=== PATIENT | female | born 1995 | race Caucasian/White ===

== ENCOUNTER 2018-09-02 10:20 | Emergency (ER) | payer OTHER ==
[2018-09-02 10:35] VITALS: BP 103/66
--- NOTE | 2018-09-02 11:08 | ED ---
Throat Pain/Nasal Congestion - HPI Summary HPI Summary: Patient is a 23 y/o F w/ c/o metal ball earring stuck in her right ear close to her ear drum. Ball fell into her ear last night, patient went to urgent care. She was told that the ball was too close to her ear drum to be pulled out and she should follow up with ENT. Patient states that her ear pain was which lead her to come into ED today. No Hx of ear infections, no other complaints. On triage, pain is rated 5/10, nothing is reported to aggravate/alleviate Sx. Home medications and allergies are reviewed. - History of Current Complaint Chief Complaint: EDEarPain Time Seen by Provider: 09/02/18 10:51 Hx Obtained From: Patient Onset/Duration: Lasting Days - onset last night, Still Present Severity: Moderate - 5/10 Associated Signs And Symptoms: Positive: Negative Cough: None - Allergies/Home Medications Allergies/Adverse Reactions: Allergies Allergy/AdvReac Type Severity Reaction Status Date / Time amoxicillin Allergy Severe Rash Verified 09/02/18 10:35 Penicillins Allergy Severe Rash Verified 09/02/18 10:35 Home Medications: Home Medications Norethindrone-E.estradiol-Iron [Junel Fe 24 1-20 mg-Mcg(24)] 1 tab PO DAILY [History Confirmed 09/02/18] PMH/Surg Hx/FS Hx/Imm Hx Sensory History: Denies: Hx Legally Blind, Hx Deafness Opthamlomology History: Denies: Hx Legally Blind EENT History: Denies: Hx Deafness Infectious Disease History: No Infectious Disease History: Denies: Traveled Outside the [place] in Last 30 Days - Family History Known Family History: Negative: Diabetes - Social History Alcohol Use: Occasionally Substance Use Type: Reports: None Smoking Status (MU): Never Smoked Tobacco Review of Systems Negative: Fever - on vitals, temp is 97.4 F Positive: Other - metal ball in right ear All Other Systems Reviewed And Are Negative: Yes Physical Exam - Summary Physical Exam Summary: Appearance: Well appearing, no pain distress Skin: warm, dry, reflects adequate perfusion Head/face: normal Eyes: EOMI, VITOR ENT: metal ball in right ear, no other abnormal findings Neck: supple, non-tender Respiratory: CTA, breath sounds present Cardiovascular: RRR, pulses symmetrical Abdomen: non-tender, soft Bowel: present Musculoskeletal: normal, strength/ROM intact Neuro: normal, sensory motor intact, A&Ox3 Triage Information Reviewed: Yes Vital Signs On Initial Exam: Initial Vitals Temp Pulse Resp BP Pulse Ox 97.4 F 66 14 103/66 98 09/02/18 10:31 09/02/18 10:31 09/02/18 10:31 09/02/18 10:31 09/02/18 10:31 Vital Signs Reviewed: Yes Diagnostics - Vital Signs Vital Signs Temp Pulse Resp BP Pulse Ox 09/02/18 10:31 97.4 F 66 14 103/66 98 - Laboratory Lab Statement: Any lab studies that have been ordered have been reviewed, and results considered in the medical decision making process. EENT Course/Dx - Course Course Of Treatment: Patient is a 23 y/o F w/ c/o metal ball earring stuck in her right ear close to her ear drum. Ball fell into her ear last night, patient went to urgent care. She was told that the ball was too close to her ear drum to be pulled out and she should follow up with ENT. Patient states that her ear pain was which lead her to come into ED today. No Hx of ear infections, no other complaints. On physical exam, patient is noted to have a metal ball in right ear with no other abnormal findings. Right ear was flushed with saline, metal ball came out of ear with no complications. Patient is agreeable with discharge, Dx of foreign body in right ear. - Diagnoses Provider Diagnoses: Foreign body in right ear Discharge - Sign-Out/Discharge Documenting (check all that apply): Patient Departure - discharge - Discharge Plan Condition: Stable Disposition: HOME Patient Education Materials: Ear Foreign Body (ED) Referrals: [facility] [Outside] - 3 Days Additional Instructions: FOLLOW UP WITH YOUR PRIMARY CARE PHYSICIAN IN THREE DAYS. RETURN TO ED FOR ANY NEW OR WORSENING SYMPTOMS. - Billing Disposition and Condition Condition: STABLE Disposition: Home - Attestation Statements Document Initiated by Scribe: Yes Documenting Scribe: Bennie Keita Provider For Whom Scribe is Documenting (Include Credential): Eric Wilson MD Scribe Attestation: Bennie Seaman , scribed for Eric Wilson MD on 09/02/18 at 1153. Scribe Documentation Reviewed: Yes Provider Attestation: The documentation as recorded by the Bennie hoyt accurately reflects the service I personally performed and the decisions made by me, Eric Wilson MD
== END 2018-09-02 11:11 | disposition home or self-care (01) ==
LOC: ED 10:20
DX: T16.1XXA Foreign body in right ear, initial encounter (principal); X58.XXXA Exposure to other specified factors, initial encounter; Y92.9 Unspecified place or not applicable
CPT/HCPCS: 99281

== ENCOUNTER → 2018-09-16 13:19 | Emergency (ER) | payer OTHER ==
[~2018-09-16 13:19] MED LIST: Ondansetron ODT TAB* 4 MG PO ONE
--- NOTE | 2018-09-16 13:37 | ED ---
Substance Abuse/Use - HPI Summary HPI Summary: This patient is a 23 year old F presenting to [facility] with a chief complaint of emesis since [employer]. Pt unresponsive, has been vomiting secondary to EtOH abuse since at least 1300 upon EMS arrival. Pt has vomit on her shirt and hair. Level 5 caveat: Full HPI unobtainable due to pts AMS secondary to EtOH. - History Of Current Complaint Stated Complaint: ETOH Time Seen by Provider: 09/16/18 13:22 Hx Obtained From: EMS Hx From Patient Unobtainable Due To: Altered Mental Status Ingestion History: Type/Name Of Drug - EtOh, Amount Ingested - unk, Approximate Time Of Ingestion - unk Overdose Characteristics: Oral Severity Currently: Moderate Character: Lethargic, Stuporous Associated Signs And Symptoms: Nausea, Vomiting, Altered Mental Status - Allergies/Home Medications Allergies/Adverse Reactions: Allergies Allergy/AdvReac Type Severity Reaction Status Date / Time amoxicillin Allergy Severe Rash Verified 09/02/18 10:35 Penicillins Allergy Severe Rash Verified 09/02/18 10:35 PMH/Surg Hx/FS Hx/Imm Hx Sensory History: Denies: Hx Legally Blind, Hx Deafness Opthamlomology History: Denies: Hx Legally Blind EENT History: Denies: Hx Deafness - Family History Known Family History: Negative: Diabetes - Social History Occupation: Student Lives: Dormitory/Roommates Alcohol Use: Occasionally Hx Substance Use: No Substance Use Type: Reports: None Hx Tobacco Use: No Smoking Status (MU): Never Smoked Tobacco - Additional Comments History Additional Comments: Level 5 caveat: full Hx unobtainable due to pt's AMS secondary to EtOH abuse. Review of Systems - ROS Summary Review of Systems Summary: Level 5 caveat: Full ROS unobtainable due to pt AMS secondary to EtOH abuse. Positive: Other - unresponsive/minimally responsive Positive: Vomiting, Nausea Positive: no symptoms reported Neurological: Other - unresponsive/minimally responsive All Other Systems Reviewed And Are Negative: No Physical Exam - Summary Physical Exam Summary: Appearance: The patient is minimally responsive, covered in vomit, well- nourished in no acute distress and in no acute pain. Skin: The skin is warm and dry and skin color reflects adequate perfusion. HEENT: The head is normocephalic and atraumatic. The pupils are equal and reactive. The conjunctivae are clear and without drainage. Nares are patent and without drainage. Mouth reveals moist mucous membranes and the throat is without erythema and exudate. The external ears are intact. The ear canals are patent and without drainage. The tympanic membranes are intact. Neck: The neck is supple with full range of motion and non-tender. There are no carotid bruits. There is no neck vein distension. Respiratory: Chest is non-tender. Lungs are clear to auscultation and breath sounds are symmetrical and equal. Cardiovascular: Heart is regular rate and rhythm. There is no murmur or rub auscultated. There is no peripheral edema and pulses are symmetrical and equal. Abdomen: The abdomen is soft and non-tender. There are normal bowel sounds heard in all four quadrants and there is no organomegaly palpated. Musculoskeletal: There is no back tenderness noted. Extremities are non-tender with full range of motion. There is good capillary refill. There is no peripheral edema or calf tenderness elicited. Neurological: Patient is minimally responsive. The patient has symmetrical motor strength in all four extremities. Cranial nerves are grossly intact. Deep tendon reflexes are symmetrical and equal in all four extremities. GCS 9 Psychiatric: The patient has an appropriate affect and does not exhibit any anxiety or depression. Triage Information Reviewed: Yes Vital Signs Reviewed: Yes Completion Of Physical Exam Limited Due To: Altered Mental Status, Level 5 - Connie Coma Scale Best Eye Response: 4 - Spontaneous Best Motor Response: 4 - Withdraws - from pain Best Verbal Response: 1 - None Coma Scale Total: 9 Course/Dx - Course Course Of Treatment: Ms. Aden presented vomiting secondary to alcohol intoxication. She was given ODT Zofran and allowed to rest. When she first arrived she was poorly responsive but was able to cooperate some. After sleeping for several hours she was cooperative and clinically sober and discharged in stable condition. - Diagnoses Provider Diagnoses: Alcohol intoxication Discharge - Sign-Out/Discharge Documenting (check all that apply): Patient Departure - discharge - Discharge Plan Condition: Stable Disposition: HOME Patient Education Materials: Alcohol Intoxication (ED) Referrals: [facility] @ [Outside] Additional Instructions: Follow up at [facility] in 2-3 days. Return to the emergency department for any new or worsening symptoms. - Billing Disposition and Condition Condition: STABLE Disposition: Home - Attestation Statements Document Initiated by Scribe: Yes Documenting Scribe: Ash Mao Provider For Whom Scribe is Documenting (Include Credential): Dr. Jonas Barrios MD Scribe Attestation: I, Ash Mao, scribed for Dr. Jonas Barrios MD on 09/17/18 at 1509. Scribe Documentation Reviewed: Yes Provider Attestation: The documentation as recorded by the scribe, Ash Mao accurately reflects the service I personally performed and the decisions made by me, Dr. Jonas Barrios MD
[2018-09-16 20:31] VITALS: BP 117/75
== END | disposition home or self-care (01) ==
LOC: ED 13:19
DX: Z88.0 Allergy status to penicillin (principal); F10.120 Alcohol abuse with intoxication, uncomplicated
CPT/HCPCS: 99283

== ENCOUNTER → 2019-02-20 21:39 | Emergency (ER) | payer OTHER ==
[~2019-02-20 21:39] MED LIST changes: +Levofloxacin TAB* 500 MG PO ONE; -Ondansetron ODT TAB* 4 MG PO ONE
--- NOTE | 2019-02-20 22:43 | ED ---
Throat Pain/Nasal Congestion - HPI Summary HPI Summary: Patient complains of sudden onset left side neck pain tonight at 8 PM, also complains of headache starting this morning, which resolved with Excedrin. Recently completed course of doxycycline for diagnosis of sinusitis. States sinusitis symptoms did not improve. History of recurrent sinusitis. Patient states she has never had neck pain with sinusitis infections before. Denies fever, cough, sore throat, SOB, CP, N/V/D, abdominal pain, change in urine, change in BM. - History of Current Complaint Chief Complaint: EDGeneral Time Seen by Provider: 02/20/19 22:08 Hx Obtained From: Patient Onset/Duration: Sudden Onset, Lasting Hours Severity: Moderate Associated Signs And Symptoms: Positive: Negative Cough: None - Allergies/Home Medications Allergies/Adverse Reactions: Allergies Allergy/AdvReac Type Severity Reaction Status Date / Time amoxicillin Allergy Severe Rash Verified 02/20/19 22:00 Penicillins Allergy Severe Rash Verified 02/20/19 22:00 PMH/Surg Hx/FS Hx/Imm Hx Endocrine/Hematology History: Denies: Hx Diabetes Cardiovascular History: Denies: Hx Pacemaker/ICD History: Denies: Hx Dialysis Sensory History: Denies: Hx Legally Blind, Hx Deafness Opthamlomology History: Denies: Hx Legally Blind EENT History: Denies: Hx Deafness Neurological History: Denies: Hx Dementia Psychiatric History: Denies: Hx Autism Infectious Disease History: No Infectious Disease History: Denies: Traveled Outside the [place] in Last 30 Days - Family History Known Family History: Negative: Diabetes - Social History Alcohol Use: Weekly Alcohol Amount: unk Hx Substance Use: No Substance Use Type: Reports: None Substance Use Comment - Amount & Last Used: unk Hx Tobacco Use: No Smoking Status (MU): Never Smoked Tobacco Review of Systems Constitutional: Negative Eyes: Negative ENT: Negative, Other Cardiovascular: Negative Respiratory: Negative Gastrointestinal: Negative Genitourinary: Negative Musculoskeletal: Negative Skin: Negative Neurological: Negative Psychological: Normal All Other Systems Reviewed And Are Negative: Yes Physical Exam - Summary Physical Exam Summary: No evidence of abscess, mass, erythema, ecchymosis, trauma to left side neck.. ENT exam unremarkable. Lung sounds clear to auscultation bilaterally. Abdomen soft nontender. Tenderness to palpation along left sternocleidomastoid. Rotation of head to the left increases left-sided neck pain. No pain with rotation to the right. Triage Information Reviewed: Yes Vital Signs On Initial Exam: Initial Vitals Temp Pulse Resp BP Pulse Ox 98.5 F 71 16 109/83 99 02/20/19 21:55 02/20/19 21:55 02/20/19 21:55 02/20/19 21:55 02/20/19 21:55 Vital Signs Reviewed: Yes Appearance: Positive: Well-Appearing Skin: Positive: Warm Head/Face: Positive: Normal Head/Face Inspection Eyes: Positive: Normal ENT: Positive: Normal ENT inspection Neck: Positive: Supple Respiratory/Lung Sounds: Positive: Clear to Auscultation Cardiovascular: Positive: Normal Abdomen Description: Positive: Nontender Musculoskeletal: Positive: Normal Neurological: Positive: Normal Psychiatric: Positive: Normal AVPU Assessment: Alert - Connie Coma Scale Best Eye Response: 4 - Spontaneous Best Motor Response: 6 - Obeys Commands Best Verbal Response: 5 - Oriented Coma Scale Total: 15 Diagnostics - Vital Signs Vital Signs Temp Pulse Resp BP Pulse Ox 02/20/19 22:21 99.6 F 02/20/19 22:15 96 100 02/20/19 22:14 90 129/72 99 02/20/19 21:55 98.5 F 71 16 109/83 99 - Laboratory Lab Statement: Any lab studies that have been ordered have been reviewed, and results considered in the medical decision making process. EENT Course/Dx - Course Course Of Treatment: Patient complains of sudden onset left side neck pain tonight at 8 PM, also complains of headache starting this morning, which resolved with Excedrin. Recently completed course of doxycycline for diagnosis of sinusitis. States sinusitis symptoms did not improve. History of recurrent sinusitis. Patient states she has never had neck pain with sinusitis infections before. Denies fever, cough, sore throat, SOB, CP, N/V/D, abdominal pain, change in urine, change in BM. Physical exam: No evidence of abscess, mass, erythema, ecchymosis, trauma to left side neck.. ENT exam unremarkable. Lung sounds clear to auscultation bilaterally. Abdomen soft nontender. Tenderness to palpation along left sternocleidomastoid. Rotation of head to the left increases left-sided neck pain. No pain with rotation to the right. Vital signs within normal limits. Physical exam unremarkable. Patient states she has been on doxycycline 3 times since the beginning of the year. Patient started on Levaquin as she has severe reaction to penicillins. - Diagnoses Provider Diagnoses: Sinusitis Discharge - Sign-Out/Discharge Documenting (check all that apply): Patient Departure Patient Received Moderate/Deep Sedation with Procedure: No - Discharge Plan Condition: Stable Disposition: HOME Prescriptions: Fluconazole 150 MG TAB* [Diflucan 150 MG TAB*] 150 mg PO ONCE 1 Days #1 tablet Levofloxacin TAB* [Levaquin TAB*] 500 mg PO DAILY 7 Days #7 tab Patient Education Materials: Sinusitis (ED) Referrals: No Primary Care Phys,NOPCP [Primary Care Provider] - Additional Instructions: Take antibiotics as directed. Return to the ED for any new or worsening symptoms. - Billing Disposition and Condition Condition: STABLE Disposition: Home
[2019-02-20 22:46] VITALS: BP 114/82
== END | disposition home or self-care (01) ==
LOC: ED 21:39
DX: J32.9 Chronic sinusitis, unspecified (principal); Z88.0 Allergy status to penicillin
CPT/HCPCS: 99282